=== PATIENT | female | born 1965 | race Native Hawaiian/Other Pacific Islander ===

== ENCOUNTER 2017-08-27 14:50 | Outpatient (CLI) | payer OTHER | END 2017-08-27 16:00 | disposition home or self-care (01) | LOC: LABW 14:50 | DX: M54.2 Cervicalgia (principal); E55.9 Vitamin D deficiency, unspecified; M54.5 Low back pain; M54.6 Pain in thoracic spine | CPT/HCPCS: 36415; 82306 ==